=== PATIENT | female | born 2000 | race Caucasian/White ===

== ENCOUNTER → 2020-01-23 10:55 | Outpatient (CLI) | payer OTHER, MEDICAID, SELFPAY ==
[2020-01-23 12:12] LABS: Add Manual Diff / Slide Review NO; Basophils Absolute Auto 100 /uL (0-100); Basophils Percent Auto 1.1 % (0-2); Eosinophils Absolute Auto 100 /uL (0-450); Eosinophils Percent Auto 1.4 % (2-4); Hematocrit 38.8 % (36-46); Lymphocytes Absolute Auto 2100 /uL (1100-4500); Lymphocytes Percent Auto 23.9 % (25-40); Mean Corpuscular HGB Conc 33.4 % (30-36); Mean Corpuscular Hemoglobin 28.2 PG (26-34); Mean Corpuscular Volume 84.5 fL (80-100); Monocytes Absolute Auto 700 /uL (0-900); Monocytes Percent Auto 7.6 % (3-14); Neutrophils Absolute Auto 5800 /uL (1500-7000); Platelet Count 402 X10^3/uL (150-400); Red Cell Distribution Width 13.5 % (11.6-14.8); White Blood Cell Count 8.7 X10^3/uL (4.5-11.0)
[2020-01-23 16:01] LABS: TSH w/ Reflex to FT4 1.99 uIU/mL (0.47-4.68)
== END ==
PROVIDERS: PCP Family Medicine; Referring Provider Family Medicine; Visit Provider Family Medicine
DX: F32.9 Major depressive disorder, single episode, unspecified (principal); R53.83 Other fatigue
CPT/HCPCS: 36415; 84443; 85025

== ENCOUNTER 2022-03-30 20:08 | Emergency (ER) | payer OTHER, MEDICAID, SELFPAY ==
[2022-03-30 20:43] VITALS: BP 139/63; PULSE 57; RESP 16; TEMP 36.3; O2SAT 99; BMI 40.7
--- NOTE | 2022-03-31 02:09 | ED_ITS ---
HPI - Back Pain/Injury General Chief Complaint: Back Pain/Injury Stated Complaint: Back/Stomach pain Time Seen by Provider: 03/31/22 01:42 Source: patient History of Present Illness HPI Narrative: 21-year-old female nonsmoker with noncontributory medical history is a at about 8 weeks and presents with her significant other and a chief complaint of epigastric pain that has been present for the past few days. She states it seems to be made worse by eating and drinking and sometimes lying flat. She is had a few episodes of nausea and vomiting and vomiting seems to improve the symptoms for some time. She denies fever or chills. She is not dizzy nor weak or lightheaded. She denies constipation or diarrhea. She denies dysuria, frequency or urgency. She denies vaginal bleeding, discharge or leakage of fluid Related Data Home Medications Medication Instructions Recorded Confirmed omega 5-yvf-muf-fish oil 1,200 mg 1 cap PO DAILY 03/20/22 03/20/22 (144 mg-216 mg) capsule (Fish Oil) prenat.vits,kalyani,[id number] 1 tab PO DAILY 03/20/22 03/20/22 Previous Rx's Medication Instructions Recorded cephalexin 500 mg capsule 500 mg PO BID #14 caps 03/31/22 ondansetron 4 mg disintegrating 4 mg PO TID-QID PRN nausea and 03/31/22 tablet vomiting #10 tabs Allergies Allergy/AdvReac Type Severity Reaction Status Date / Time From TETANUS AND DIPHTHERIA Allergy Unknown SYSTEMIC Uncoded 03/20/22 12:01 TOXOIDS A... URTICARIA PREVNAR Allergy Unknown SYSTEMIC Uncoded 03/20/22 12:01 URTICARIA Review of Systems Review of Systems Narrative: GENERAL: Denies chills, fatigue, malaise, fever, sweats. HEENT: Denies sinus pain, ear pain, sore throat, difficulty swallowing, dizziness. RESPIRATORY: Denies dyspnea, cough, wheezing, hemoptysis, sputum. CARDIOVASCULAR: Denies chest pain, palpitations, orthopnea, edema, GASTROINTESTINAL: See HPI : Denies dysuria, frequency, incontinence, hematuria, urinary retention. MUSCULOSKELETAL: denies weakness, joint pain, or bony pain SKIN: Denies rash, skin lesions, or other NEUROLOGIC: Denies weakness, headache, numbness, change in speech, confusion, seizures, incoordination. PSYCHIATRIC: No concerning psychosocial issues. 12 point review of systems is negative except for those stated above Patient History Surgical History H/O tympanostomy [place] teeth extracted Family History Father Family estrangement Mother Depression Grandfather Lung cancer Smoking Grandfather Alcohol abuse Cirrhosis Grandmother Pre-diabetes Skin cancer Dementia Hypertension Social History marital status: unmarried,living together number of children: 0 household members: significant other and family (s/o's parents) lives independently: Yes caregiver/support person: No housing: house pets and animals: No education level: high school occupational status: employed ([employer]) current occupational exposures/hazards: No (removed from hazmat duties since ) special parag needs: No travel history: over 6 months ago seatbelt use: always working smoke detector in home: Yes fire extinguisher in home: Yes carbon monox detector in home: Yes firearms in home: No do you feel safe at home: Yes Smoking Status: Never smoker second hand exposure: No alcohol intake: former (rarely when not ) substance use type: does not use during the past year weight has: decreased > 10 lbs (intentional with healthy habits) well-balanced diet: about half the time daily servings fruits/ve-4 caffeine: Yes (aware of 200mg limit) Type(s) of exercise: aerobic (stair climber, treadmill) Smoking Status: Never smoker Exam Narrative Exam Narrative: GENERAL: [21] year old patient appears stated age. Well-developed patient, in mild distress. HEAD: Atraumatic. Normocephalic. EYES: Pupils equal round and reactive. Extraocular motions intact. No scleral ic terus. No injection or drainage. ENT: Nose without bleeding, purulent drainage. Throat without erythema, tonsillar hypertrophy or exudate. Airway patent. NECK: Trachea midline. Non tender CARDIOVASCULAR: Regular rate and rhythm without murmurs, gallops, or rubs. RESPIRATORY: Clear to auscultation. Breath sounds equal bilaterally. No wheezes, rales, or rhonchi. GASTROINTESTINAL: Abdomen soft, epigastric and right upper quadrant pain, nondistended. EXTREMITIES: No edema or joint tenderness. BACK: Nontender without deformity or crepitance. No flank tenderness. NEURO: AOx3. SKIN: No rash or erythema of visible areas Initial Vital Signs Initial Vital Signs: Vital Signs Temperature 97.3 F L 03/30/22 20:43 Pulse Rate 57 L 03/30/22 20:43 Respiratory Rate 16 03/30/22 20:43 Blood Pressure 139/63 03/30/22 20:43 Pulse Oximetry 99 03/30/22 20:43 Oxygen Delivery Method 03/30/22 20:43 Course Orders Ordered: Discontinued Medications Cefazolin Sodium (Cephalexin 250 Mg Prepack) 1 bottle MISC SEEINSTR ONE Stop: 03/31/22 06:26 Last Admin: 03/31/22 06:37 Dose: 500 mg Documented By: TAVON Vital Signs Vital signs: Vital Signs - 8 hr 03/30/22 20:43 Temperature 97.3 F L Pulse Rate 57 L Respiratory Rate 16 Blood Pressure 139/63 Pulse Oximetry 99 Oxygen Delivery Method Room Air MDM - Back Pain/Injury Lab Data Result diagrams: 03/31/22 02:30 03/31/22 02:30 Labs: Lab Results 03/31/22 03/31/22 03/31/22 Range/Units 02:25 02:30 02:30 WBC 13.8 H (4.5-11.0) X10^3/uL RBC 4.71 (4.0-5.2) X10^6/uL Hgb 12.9 (12.0-16.0) g/dL Hct 39.9 (36-46) % MCV 84.6 (80-100) fL MCH 27.3 (26-34) PG MCHC 32.3 (30-36) % RDW 13.2 (11.6-14.8) % Plt Count 406 H (150-400) X10^3/uL Neut % (Auto) 75.7 H (50-75) % Lymph % (Auto) 17.1 L (25-40) % Callaway % (Auto) 5.8 (3-14) % Eos % (Auto) 0.5 L (2-4) % Baso % (Auto) 0.9 (0-2) % Neut # (Auto) 03656 H (7586-7627) /uL Lymph # (Auto) 2300 (3406-1227) /uL [place]away # (Auto) 800 (0-900) /uL Eos # (Auto) 100 (0-450) /uL Baso # (Auto) 100 (0-100) /uL Sodium 137 (137-145) mmol/L Potassium 3.9 (3.4-5.1) mmol/L Chloride 102 (98-107) mmol/L Carbon Dioxide 25 (22-32) mmol/L BUN 8 (7-17) mg/dL Creatinine 0.51 L (0.52-1.04) mg/dL Estimated GFR > 60 (>60) mL/min BUN/Creatinine Ratio 15.7 (6-22) Glucose 91 (70-100) mg/dL Calcium 9.0 (8.4-10.2) mg/dL Total Bilirubin 1.9 H (0.2-1.3) mg/dL AST 657 H (14-36) IU/L ALT 888 H (<35) IU/L Alkaline Phosphatase 166 H (38-126) U/L Total Protein 7.9 (6.3-8.2) g/dL Albumin 4.2 (3.5-5.0) g/dL Globulin 3.7 (1.7-4.1) g/dL Albumin/Globulin Ratio 1.1 (1.0-2.8) Lipase 141 (23-300) U/L Urine RBC None seen (0-5/HPF) Urine WBC 5-10/hpf H (0-5/HPF) Ur Squamous Epith Cells 5-10 /hpf H (0-5/HPF) Ur Transition Epith Cell 0-1/hpf (0-5/HPF) Calcium Oxalate Crystal Occasional H Urine Bacteria Many (>30) H (None) Ur Culture Indicated? Specimen cultured Point of Care Testing Test Results Positive Urine Dip Bedside Urine Glucose Negative Bedside Urine Bilirubin - Negative Bedside Urine Ketone - Negative Urine Specific Donaldson 1.020 Bedside Urine Occult Blood - Negative Bedside Urine pH 6.0 Bedside Urine Protein - Negative Bedside Urine Urobilinogen +/- 1mg Bedside Urine Nitrite - Negative Bedside Urine Leukocytes + 70 Esterase Imaging Data US - abdomen: Radiologist's Impression: Hepatic steatosis, cholelithiasis without sonographic findings of acute cholecystitis MDM Narrative Medical decision making narrative: [21-year-old female healthy at about 8 weeks with some epigastric pain and radiation to her back. Multiple etiologies for patient's symptoms considered including, but not limited to: [Gallbladder disease, pancreatitis, hepatitis versus other] Labs reviewed and interpreted by myself: Elevated bilirubin and LFTs concerning for possible viral hepatitis versus GB disease vs. other Imaging reviewed: Ultrasound demonstrates gallstones but no evidence of cholecystitis or obstructive process Consultations: Discussed with on-call General surgery, we sure the opinion that findings are not consistent with a surgical emergency and recommendations to treat symptomatically including avoidance of fatty foods etc.. Discussed with on-call OB, no OB specific diagnoses likely to be contributing to LFTs this early in . Recommends symptomatic treatment and close follow-up Patient's symptoms improved over duration of stay with above-stated therapies. Findings and discharge diagnosis discussed with patient/family followed by verbalization of understanding Return precautions discussed with patient/family whom verbalize understanding of diagnosis and plan Discharge Plan Departure Patient Disposition: Home Clinical Impression: Acute epigastric pain, Acute gallstone pancreatitis, Abnormal transaminases Instructions: DI for Gallstones, DI for Epigastric Pain Activity Restrictions/Additional Instructions: *You have been diagnosed with [epigastric pain and elevated liver enzymes along with gallstones and a urine infection] *What to do: *Please continue to take your regular medications as directed. [ x] New medication prescriptions sent to your pharmacy: [ [facility]] [ ] New medication written as a paper prescription [ ] No new medications given *Please follow up with your primary OB provider in 2-3 days, call for an appointment. Let them know you were seen in the Emergency Department and that we ask that you be seen in follow up. We will electronically transmit a record of today's note if your PCP is in our system *If you do not have a primary care provider please contact the [facility] Resource line at [phone]. They will ask some questions about your medical history and help get you set up with a doctor in the community. *Return to Emergency Department if you should have any new, worsening or concerning symptoms, such as [fever greater than 101 F, shaking chills, worsening pain, persistent vomiting or other bothersome symptoms] Prescriptions: New cephalexin 500 mg capsule 500 mg PO BID Qty: 14 0RF ondansetron 4 mg tablet,disintegrating 4 mg PO TID-QID PRN (Reason: nausea and vomiting) Qty: 10 0RF No Action prenat.vits,kalyani,[id number]-[id number] Tablet 1 tab PO DAILY omega 9-tgi-uoc-fish oil [Fish Oil] 1,200 (144-216) mg capsule 1 cap PO DAILY Referrals: Angie Troncoso MD [Primary Care Provider] - Visit Report Forms: Patient Portal/API
--- NOTE | 2022-03-31 02:16 | DI.US.S_ITS ---
PROCEDURE: US ABDOMEN LIMITED INDICATIONS: EPIGASTRIC PAIN RADIATING TO BACK. NAUSEA AND VOMITING. TECHNIQUE: Real-time scanning was performed of the abdominal and retroperitoneal organs, with image documentation. COMPARISON: None. FINDINGS: Liver: Liver is normal in size and homogeneous in echotexture. Gallbladder: The gallbladder wall measures 1.5 mm in diameter. Multiple mobile stones are present within the fundus. No pericholecystic fluid or sonographic Rios sign. Biliary ducts: Intrahepatic bile ducts are non-dilated. Extrahepatic bile duct caliber measures 3.0 mm. Normal is 6-7 mm or less in diameter, or 10 mm or less post-cholecystectomy. Pancreas: Visualized portions of the pancreas are sonographically normal. The tail of the pancreas is not visualized. IMPRESSION: Cholelithiasis. No findings to suggest choledocholithiasis or acute cholecystitis. These findings are concordant with the overnight interpretation. Dictated by: Alexandra Gaines M.D. on 03/31/2022 at 8:08 Approved by: Alexandra Gaines M.D. on 03/31/2022 at 8:09
[2022-03-31 02:45] LABS: Add Manual Diff / Slide Review NO; Basophils Absolute Auto 100 /uL (0-100); Basophils Percent Auto 0.9 % (0-2); Eosinophils Absolute Auto 100 /uL (0-450); Eosinophils Percent Auto 0.5 % (2-4); Hematocrit 39.9 % (36-46); Hemoglobin 12.9 g/dL (12.0-16.0); Lymphocytes Absolute Auto 2300 /uL (1100-4500); Lymphocytes Percent Auto 17.1 % (25-40); Mean Corpuscular HGB Conc 32.3 % (30-36); Mean Corpuscular Hemoglobin 27.3 PG (26-34); Mean Corpuscular Volume 84.6 fL (80-100); Monocytes Absolute Auto 800 /uL (0-900); Monocytes Percent Auto 5.8 % (3-14); Neutrophils Absolute Auto 10400 /uL (1500-7000); Neutrophils Percent Auto 75.7 % (50-75); Platelet Count 406 X10^3/uL (150-400); Red Blood Cell Count 4.71 X10^6/uL (4.0-5.2); Red Cell Distribution Width 13.2 % (11.6-14.8); White Blood Cell Count 13.8 X10^3/uL (4.5-11.0)
[2022-03-31 02:50] LABS: Albumin 4.2 g/dL (3.5-5.0); Albumin Globulin Ratio 1.1 (1.0-2.8); Alkaline Phosphatase 166 U/L (38-126); Aspartate Aminotransferase 657 IU/L (14-36); BUN Creatinine Ratio 15.7 (6-22); Bilirubin Total 1.9 mg/dL (0.2-1.3); Blood Urea Nitrogen 8 mg/dL (7-17); Carbon Dioxide 25 mmol/L (22-32); Chloride 102 mmol/L (98-107); Estimated Glomerular Filt Rate > 60 mL/min (>60); Globulin 3.7 g/dL (1.7-4.1); Glucose 91 mg/dL (70-100); HEMOLYSIS < 15 (0-50); Lipase 141 U/L (23-300); Potassium 3.9 mmol/L (3.4-5.1); Sodium 137 mmol/L (137-145); Total Protein 7.9 g/dL (6.3-8.2)
[2022-03-31 02:55] LABS: Bacteria Urine Many (>30); Calcium Oxalate Crystals Urine Occasional; Squamous Epithelial Cell Urine 5-10 /HPF (0-5/HPF); Transitional Epi Cells Urine 0-1/HPF (0-5/HPF); WBC Urine 5-10/HPF (0-5/HPF)
[2022-03-31 02:56] LABS: Culture Indicated Urine Specimen Cultured
[2022-03-31 02:58] LABS: Alanine Aminotransferase 888 IU/L (<35)
[2022-03-31 03:06] LABS: RBC Urine None Seen (0-5/HPF)
[2022-03-31] MEDS: cephALEXin 250 MG PREPACK 1 BOTTLE MISC (06:37)
[2022-03-31 06:45] VITALS: BP 128/74; PULSE 74; RESP 16; TEMP 36.6; O2SAT 98
[2022-03-31 23:59] LABS: HBsAg Screen Negative (Negative); Hepatitis A Antibody IgM Negative (Negative); Hepatitis B Core Antibody IgM Negative (Negative); Hepatitis C Antibody <0.1 s/co ratio (0.0-0.9)
== END 2022-03-31 06:47 | disposition home or self-care (01) ==
PROVIDERS: Emergency Provider Emergency Medicine; PCP Family Medicine
DX: O26.91 Pregnancy related conditions, unspecified, first trimester (principal); K85.10 Biliary acute pancreatitis without necrosis or infection; R74.8 Abnormal levels of other serum enzymes; Z3A.08 8 weeks gestation of pregnancy
CPT/HCPCS: 36415; 76705; 80053; 80074; 81003; 81015; 81025; 83690; 85025; 87077; 87086; 87186; 99284

== ENCOUNTER → 2022-04-15 15:25 | Outpatient (ROUT) | payer OTHER, MEDICAID, SELFPAY ==
[2022-04-15 15:48] LABS: Appearance Urine UA CLEAR; Bilirubin Urine UA NEGATIVE (NEGATIVE); Color Urine UA YELLOW; Glucose Urine UA NEGATIVE (Negative); Ketones Urine UA NEGATIVE (NEGATIVE); Leukocyte Esterase Urine UA NEGATIVE (NEGATIVE); Nitrite Urine UA NEGATIVE (Negative); Occult Blood Urine UA NEGATIVE (Negative); Protein Urine UA NEGATIVE (Negative); Urobilinogen Urine UA 0.2 E.U./dL (0.2)
[2022-04-15 15:58] LABS: pH Urine UA 6.5 (4.5-8.0)
== END ==
PROVIDERS: PCP Family Medicine; Visit Provider Family Medicine
DX: Z34.01 Encounter for supervision of normal first pregnancy, first trimester (principal)
CPT/HCPCS: 81003; 87086

== ENCOUNTER → 2022-05-22 11:46 | Outpatient (CLI) | payer OTHER, MEDICAID, SELFPAY ==
[2022-05-22 12:46] LABS: Add Manual Diff / Slide Review NO; Basophils Absolute Auto 100 /uL (0-100); Basophils Percent Auto 0.4 % (0-2); Eosinophils Absolute Auto 100 /uL (0-450); Eosinophils Percent Auto 1.1 % (2-4); Hematocrit 36.6 % (36-46); Hemoglobin 12.4 g/dL (12.0-16.0); Lymphocytes Absolute Auto 2100 /uL (1100-4500); Mean Corpuscular HGB Conc 33.8 % (30-36); Mean Corpuscular Hemoglobin 28.4 PG (26-34); Monocytes Absolute Auto 600 /uL (0-900); Monocytes Percent Auto 4.8 % (3-14); Neutrophils Absolute Auto 10200 /uL (1500-7000); Neutrophils Percent Auto 77.7 % (50-75); Platelet Count 345 X10^3/uL (150-400); Red Blood Cell Count 4.36 X10^6/uL (4.0-5.2); Red Cell Distribution Width 13.5 % (11.6-14.8); White Blood Cell Count 13.2 X10^3/uL (4.5-11.0)
[2022-05-22 14:05] LABS: Hepatitis B Surface Antigen NEGATIVE s/c (NEGATIVE); Rubella Antibody IgG 27.3 IU/mL (>15)
[2022-05-22 14:22] LABS: HIV 1 & 2 Ab/Ag 4th Gen Combo NEGATIVE (NEGATIVE); Hep C Virus Ab w/Reflex Quant NEGATIVE s/c (NEGATIVE)
[2022-05-23 09:56] LABS: Varicella IgG Antibody <135 index (Immune >165)
[2022-05-24 03:38] LABS: RPR Screen Non Reactive (Non Reactive)
[2022-05-26 19:07] LABS: AFP, Serum 25.6 ng/mL (.); Calc Gestational Age Ultrasound (.); Estriol, Free 0.62 ng/mL (.); Inhibin A, Dimeric 138.01 pg/mL (.); Maternal Ethnicity Caucasian (.); Maternal Weight 231 lbs (.); Number of Fetuses No (.); OSBR Risk 1 IN 10000 (.); Results Report (.); Test Results *Screen Negative* (.); hCG, MoM 1.44 (.); hCG, Serum 48939 mIU/mL (.)
== END ==
PROVIDERS: PCP Family Medicine; Referring Provider Family Medicine; Visit Provider Family Medicine
DX: Z34.01 Encounter for supervision of normal first pregnancy, first trimester (principal)
CPT/HCPCS: 36415; 80055; 82105; 82677; 84702; 86336; 86787; 86803; 86850; 86900; 86901; 87389

== ENCOUNTER → 2022-06-24 11:18 | Outpatient (CLI) | payer OTHER, MEDICAID, SELFPAY ==
--- NOTE | 2022-06-24 11:19 | DI.US.S_ITS ---
PROCEDURE: US OB >= 14 WEEKS FETUS INDICATIONS: Anatomy Scan OUTSIDE/PRIOR DATING DATA: Last menstrual period (LMP): 01/22/2022. LMP-based estimated date of delivery (IRENE): 11/06/2022. First dating scan (date and location): Today's exam. Estimated date of delivery (IRENE) from first dating scan: 11/08/2022. The calculations are made using the clinical IRENE of 11/06/2022. TECHNIQUE: Real-time scanning was performed of the fetus, with image documentation and biometric measurements. Endovaginal scanning: Not performed. COMPARISON: None. FINDINGS: General: A single living intrauterine gestation is present. Presentation: Variable. Placenta: Placental position is anterior , without previa. Amniotic fluid index: 15.9 cm, normal range is 5-24 cm. Single deepest vertical pocket is 5.3 cm. heart rate: 140 beats per minute. Maternal cervical canal: 5.0 cm long. Normal lower limit is 2.5 cm. biometrics: Biparietal diameter: 4.8 cm, 20 weeks 4 days Head circumference: 18.1 cm, 20 weeks 4 days Abdominal circumference: 15.2 cm, 20 weeks 3 days Femur length: 3.3 cm, 20 weeks 2 days Clinically estimated gestational age: 20 weeks 5 days Composite gestational age from present scan: 20 weeks 3 days Estimated weight and percentile: 352 g, 29th percentile Anatomic survey: Neuro: Ventricles are non-dilated at less than 10 mm. Cisterna magna is normal at 3-11 mm. Cerebellum is normal in size and morphology. Nuchal skin fold: Normal at less than 6 mm between 14-21 weeks gestational age. Face: Nose and lips, facial profile are normal. Spine: No evidence for spina bifida. Heart: 4-chambered heart is present, with normal ventricular outflow tracts. Diaphragm: Diaphragm is intact. Stomach: Left-sided stomach is present. Kidneys: No hydronephrosis. Normal is less than 5 mm in 2nd trimester, less than 7 mm in 3rd trimester. Cord: 3-vessel cord has orthotopic insertion. Bladder: Normal in size. Extremities: All 4 extremities identified. IMPRESSION: 1. Single living intrauterine at 20 weeks 5 days, IRENE of 11/06/2022. 2. Normal anatomy survey. We strive to produce accurate, complete, and clear reports of imaging services. To assist us in improving patient care, this report was composed using standard report templates and voice recognition software. Therefore, it may contain abnormal punctuation, insertions and/or omissions. Occasional wrong-word or sound-alike substitutions may occur. Though we review the report and make efforts to correct it, we do recommend that the report be read carefully in proper context to recognize any text inaccuracies. Dictated by: Clark Benitez M.D. on 06/24/2022 at 15:08 Approved by: Clark Benitez M.D. on 06/24/2022 at 15:12
[2022-06-26 12:21] LABS: Bile Acids 2.3 umol/L (0.0-10.0)
== END ==
PROVIDERS: PCP Family Medicine; Referring Provider Family Medicine; Visit Provider Family Medicine
DX: O99.712 Diseases of the skin and subcutaneous tissue complicating pregnancy, second trimester (principal); L29.9 Pruritus, unspecified; Z3A.20 20 weeks gestation of pregnancy; Z36.89 Encounter for other specified antenatal screening
CPT/HCPCS: 36415; 76811; 82239